=== PATIENT | female | born 1940 | race Caucasian/White ===

== ENCOUNTER 2017-03-31 18:07 | Inpatient (IN) | payer MEDICARE ==
--- NOTE | ~2017-03-31 | EKG ---
PATIENT: MANDY MEJIA UNIT #: [id number] Ventricular Rate: 119 BPM Atrial Rate: 119 BPM P-R Interval: 192 ms QRS Duration: 72 ms Q-T Interval: 296 ms QTC Calculation(Bezet): 416 ms P Seneca: 76 degrees Calculated R Seneca: 51 degrees Calculated T Seneca: 75 degrees Diagnosis Line: Sinus tachycardia Diagnosis Line: Nonspecific ST abnormality Diagnosis Line: Abnormal ECG Diagnosis Line: No previous ECGs available Diagnosis Line: Confirmed by ENEIDA ROJO MD ([id number]) on Diagnosis Line: 04/01/2017 2:01:34 PM INTERPRETING MD: DARREL DE LA PAZ
--- NOTE | ~2017-03-31 | HP ---
Unit #: [id number] #: [id number] Patient: MANDY MEJIA [id number] [address] [place], [place] [address] [id number] I MR#: [id number] NAME: MANDY MEJIA. ROOM: [facility] Age: 76 Sex: F Admission Date: 04/01/2017 : 1940 Attending Physician: Kim Cuevas M.D. Primary Care Physician: Bhavani Diehl M.D. HISTORY AND PHYSICAL CHIEF COMPLAINT Intractable left hip/thigh pain. HISTORY This pleasant 76-year-old female with rheumatoid arthritis, iron and B12 deficiency anemia, MRSA, is admitted for intractable left thigh/hip pain. The patient states that she was well until about three weeks ago when she developed some increasing pain and swelling around the dorsum of her right hand/wrist area, but this became more swollen and red recently. Two days ago developed fairly significant pain in her left thigh, left groin, left hip along with feeling hot and chilled. She currently is taking cefuroxime for a cough. Her grandson yesterday. She presented to this emergency department last evening complaining of fairly severe pain in the left thigh/left hip which is worse with movement. There are no fluctuant areas or redness that I can see. Labs are notable for leukocytosis, microcytic anemia, hyponatremia. Rectal examination revealed brown stool, trace heme positive. In the ER, she was given morphine, IV fluids, blood cultures were done, and a CT scan of the leg is pending. PAST MEDICAL HISTORY 1. Admission 12/2014 for MRSA abscess of the labia and buttocks requiring I and D. The patient was seen in consultation by infectious disease along with LSA. 2. Rheumatoid arthritis. 3. Glaucoma. 4. Breast cancer, status post partial right mastectomy. 5. Iron and B12 deficiency anemia. 6. COPD, on 2 L of oxygen. 7. MRSA abscess of the buttocks and labia requiring I and D. 8. Total abdominal hysterectomy. 9. Right wrist surgery. ALLERGIES None. HOME MEDICATIONS 1. Valium 5 mg q. h.s. 2. Phenergan 25 mg q.6 hours as needed. 3. Lortab 5/325 q.6 hours as needed. 4. Omeprazole 40 mg daily. 5. Cefuroxime 250 mg b.i.d. 6. Senna tablets, 2 mg daily. Unit #: [id number] #: [id number] Patient: MANDY MEJIA 7. Plaquenil 200 mg, two tablets daily. 8. Tylenol Arthritis. FAMILY HISTORY Congestive heart failure. SOCIAL HISTORY The patient lives with her , and grandson. Smokes one and a half packs per day of tobacco, does not drink alcohol except on a rare basis. REVIEW OF SYSTEMS Notable for redness, swelling of the right wrist, intense pain in the left thigh and groin, fevers, chills, COPD, rheumatoid arthritis, glaucoma, breast cancer, above mentioned surgeries, MRSA, anemia. All other systems were reviewed and are otherwise negative. PHYSICAL EXAMINATION GENERAL APPEARANCE: Pleasant 76-year-old female who looks to be uncomfortable. VITAL SIGNS: Temperature 98.1, pulse 88, respirations 18, blood pressure 150/70. O2 saturation is 98% on room air. HEENT: Eyes PERRLA. Extraocular muscles are intact. Pharynx is benign. NECK: Supple without adenopathy or thyromegaly. CHEST: Clear. CARDIAC: Normal S1 and S2 without S3, S4 or murmur. ABDOMEN: Bowel sounds are present. No hepatosplenomegaly, tenderness or masses. EXTREMITIES: Without edema. No splinter hemorrhages noted over the nail beds. No fluctuance or rash that I can see in the left thigh region. There is no labial abscess present. Movement of the hip causes fairly intense pain in the left thigh/left groin area. RECTAL EXAMINATION: No masses. Brown stool, trace heme positive. NEUROLOGIC: The patient is awake, alert, oriented. Cranial nerves are intact. She is weak throughout but has equal strength throughout. DIAGNOSTIC STUDIES LABORATORY: Admission labs - hematocrit is 24.1, MCV is 64, white blood count is 18.3, normal platelet count. One band noted. SMA-12 - glucose 114, sodium 125, chloride is 93. IMAGING: Chest x-ray - no acute disease. X-ray of the left hip shows DJD. ASSESSMENT 1. Right wrist redness and swelling which may represent rheumatoid arthritis flare versus some sort of infectious process. 2. Left hip and thigh pain of uncertain etiology, need to rule out septic joint, etc. 3. Microcytic anemia, patient is trace heme positive. 4. History of methicillin resistant Staph aureus. 5. Hyponatremia. 6. Chronic obstructive pulmonary disease, on home oxygen with ongoing tobacco use. 7. Status post partial right mastectomy for breast cancer. 8. History of iron and B12 deficiency. 9. Rheumatoid arthritis. Unit #: [id number] #: [id number] Patient: MANDY MEJIA PLANS 1. CT scan of the left leg, check venous Dopplers. 2. Empiric antibiotics in the form of Zosyn and vancomycin pending above. 3. Obtain urinalysis. 4. Proton pump inhibitor, transfuse and obtain anemia workup. 5. SCDs for DVT prophylaxis. 6. Obtain TSH and EKG. 7. Consultants depending on CT scan results. 8. Will give a little bit of prednisone in case the right wrist redness represents RA flare. 9. Blood cultures are pending. Dictated by Kim Cuevas M.D. AML/df TD: 04/01/2017 05:11 JOB #: [id number] HISTORY AND PHYSICAL Page 1 of 1 X Kim Cuevas MD X HISTORY AND PHYSICAL
--- NOTE | ~2017-03-31 | XA166 ---
[facility] A Service of [facility] & [facility] RADIOLOGY TEXT RESULTS PATIENT: MANDY MEJIA LOCATION: [facility] [address] : [birth year] UNIT #: [id number] AGE: [address]: Ana Cristina Silveira MD SEX: F ORDER DR: [id number] [facility] [address] [facility]. [place], [place] [address] [id number] I MR#: [id number] Acc #: [id number] NAME: MANDY MEJIA : 1940 SEX: F STUDY DATE/TIME: 04/03/2017 15:15 UNIT: [facility] ROOM: [facility] STUDY DESCRIPTION: XA PICC Line Placement WO Port Attending Physician: Ana Cristina Silveira M.D. Ordering Physician: Jj Linton M.D. Primary Care Physician: Bhavani Diehl M.D. MEDICAL IMAGING REPORT This report is preliminary unless electronic signature is present EXAM PICC line placement INDICATION IV access for antibiotics. PRE-PROCEDURE The procedure was explained to the patient and/or patient sales representatives including risks, benefits, potential complications and potential for alternative forms of treatment. Informed consent was obtained, and prior to initiating the procedure a formal timeout procedure was performed. PROCEDURE Using full standard sterile barrier technique, including caps, gowns, gloves, masks, as well as sterile skin preparation and standard sterile draping, the right arm was prepped and draped in the usual fashion, and real-time sterile ultrasound guidance was used to localize an arm vein and to confirm vessel patency. A hard copy ultrasound image was recorded. After local anesthesia with 1% Xylocaine, the right basilic vein was punctured using real-time sterile ultrasound guidance, and an 0.018 guidewire was advanced into the superior vena cava, using fluoroscopic guidance. A 4-Puerto Rican 35 cm single-lumen PICC was then measured and deployed with the tip positioned in the superior vena cava. The position of the line was documented with a radiographic image. The line was secured in place with an adhesive dressing and an antibiotic patch was applied. . The fluoroscopy time was 0.1 minute. Reference air kerma 1 mGy/cm. A single fluoroscopic spot image was obtained. IMPRESSION 1. Successful placement of a 4-Puerto [place]ican 35 c, single-lumen Power PICC via the right arm under ultrasound and fluoroscopic guidance. The tip of [facility] A Service of [facility] & [facility] RADIOLOGY TEXT RESULTS PATIENT: MANDY MEJIA LOCATION: [facility] 465- : [birth year] UNIT #: [id number] AGE: [address]: Ana Cristina Silveira MD SEX: F ORDER DR: the PICC is in good position in the superior vena cava. 2. A single fluoroscopic spot image was obtained. Dictated by... Norman Kohli M.D. THIS IS AN ELECTRONICALLY VERIFIED REPORT Norman Kohli M.D. at 04/04/2017 5:15 PM BHASKAR/abraham TD: 04/03/2017 23:10 JOB #: [id number] MEDICAL IMAGING REPORT Page 1 of 1 COPY
--- NOTE | ~2017-03-31 | CR150 ---
[facility] A Service of [facility] & [facility] RADIOLOGY TEXT RESULTS PATIENT: MANDY MEJIA LOCATION: [facility] 465-01 : 41 UNIT #: [id number] AGE: [address]: Ana Cristina Silveira MD SEX: F ORDER DR: [id number] [facility] [address] [facility]. [place], [place] [address] [id number] I MR#: [id number] Acc #: [id number] NAME: MANDY MEJIA : 1940 SEX: F STUDY DATE/TIME: 03/31/2017 22:19 UNIT: [facility] ROOM: [facility] STUDY DESCRIPTION: CR Hip Min 2 Views Lt Attending Physician: Ana Cristina Silveira M.D. Ordering Physician: Amy Diaz M.D. Primary Care Physician: Bhavani Diehl M.D. MEDICAL IMAGING REPORT This report is preliminary unless electronic signature is present EXAM Left hip series INDICATION Chronic left hip pain. PROCEDURE Frontal view of the pelvis and a lateral view of the left hip. COMPARISON None FINDINGS There is mild to moderate bilateral hip arthrosis. No acute findings. No fracture or dislocation. IMPRESSION 1. No acute findings. 2. Ljjs-ms-qizaebol bilateral hip arthrosis. Dictated by... Ernesto Angulo M.D. THIS IS AN ELECTRONICALLY VERIFIED REPORT Ernesto Angulo M.D. at 04/01/2017 10:14 PM SEGUNDO/sharita TD: 04/01/2017 08:42 JOB #: [id number] MEDICAL IMAGING REPORT Page 1 of 1 COPY
--- NOTE | ~2017-03-31 | OR ---
Unit #: [id number] #: [id number] Patient: MANDY MEJIA [id number] [facility]. [address] [place], [place] [address] [id number] I MR#: [id number] NAME: MANDY MEJIA ROOM: 465 Date of Procedure: 04/02/2017 Admission Date: 04/01/2017 Surgeon: Gordo Grant M.D. : 1940 Attending Physician: Ana Cristina Silveira M.D. Primary Care Physician: Bhavani Diehl M.D. OPERATIVE REPORT PRIMARY CARE PHYSICIAN Bhaavni Diehl M.D. PREOPERATIVE DIAGNOSES Severe iron-deficiency anemia with hemoglobin of 7.3, and transferrin saturation of 1%. The patient has actually presented with septic arthritis of left hip. PROCEDURE PERFORMED Upper gastrointestinal endoscopy. POSTOPERATIVE DIAGNOSES 1. The patient had a small hiatus hernia. 2. 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 3. Rest of the examination up to third part of duodenum was normal. RECOMMENDATIONS The patient is given intravenous iron infusions. She can be discharged from GI standpoint. At the present time, she is too frail to undergo colonoscopy, which should be scheduled as an outpatient after the patient's septic arthritis is resolved with antibiotic therapy. In the meantime, she is getting ferrous gluconate 250 mg IV q.24 hours for 3 days. SEDATION USED MAC. DESCRIPTION OF PROCEDURE Following detailed explanation of potential risks and complications of an upper endoscopy, namely perforation, bleeding, and complication related to sedation, the patient was brought to GI lab and laid in the left lateral decubitus position. Lubricated tip of the Olympus video upper endoscope was passed through the bite block into the proximal esophagus under direct vision. The entire esophageal mucosa was examined and the patient was noted to have distal esophageal early stricture along with a small hiatus hernia. The scope was then advanced into the gastric cavity and the latter was insufflated. Mucosa of the fundus, body, and antrum was examined and appeared unremarkable. Pylorus was intubated with visualization of the normal duodenal bulb and second and third part of the duodenum. Upon withdrawal and retroflexion, incisura, cardia, and greater curve was examined and no additional findings were noted. The scope was then withdrawn in the distal esophagus. The entire esophageal mucosa was examined all the way up to pharynx. No additional findings were noted. Unit #: [id number] #: [id number] Patient: MANDY MEJIA The patient tolerated the procedure without any postprocedure complications. Dictated by.Manjit Panda/rakel TD: 04/04/2017 11:31 JOB #: [id number] CC: Manjit Gerber M.D. OPERATIVE REPORT Page 1 of 1 X Gordo Grant MD X PROCEDURE OPERATIVE NOTE
--- NOTE | ~2017-03-31 | XA31 ---
[facility] A Service of [facility] RADIOLOGY TEXT RESULTS PATIENT: MANDY MEJIA LOCATION: [facility] 465-01 : 41 UNIT #: [id number] AGE: [address]: Ana Cristina Silveira MD SEX: F ORDER DR: [id number] [place] [id number] [facility]. [place], [place] [address] [id number] I MR#: [id number] Acc #: [id number] NAME: MANDY MEJIA : 1940 SEX: F STUDY DATE/TIME: 04/01/2017 16:23 UNIT: [facility] ROOM: [facility] STUDY DESCRIPTION: XA Arthrocentesis Small Joint Attending Physician: Ana Cristina Silveira M.D. Ordering Physician: Ana Cristina Silveira M.D. Primary Care Physician: Bhavani Diehl M.D. MEDICAL IMAGING REPORT This report is preliminary unless electronic signature is present PROCEDURE Attempted wrist aspiration. INDICATIONS Wrist pain, concern for septic arthritis. Risks, benefits and alternatives of the procedure were discussed with the patient, informed consent was obtained. In the procedure room, a time-out was performed confirming correct patient and procedure. All elements of maximum sterile-barrier technique utilized, according to guidelines appropriate for the procedure. TECHNIQUE/FINDINGS Examination was performed demonstrating some mild soft tissue swelling over the dorsum of the wrist. Ultrasound was performed demonstrating a questionable small amount of fluid adjacent to the dorsal tendon sheaths. The overlying skin was prepped and draped in the usual sterile fashion and 1% lidocaine was utilized to anesthetize the skin and underlying subcutaneous tissues. Next, under ultrasound guidance, a 25-gauge needle was advanced into the collection, but no fluid was able to be aspirated. Needle was removed and a sterile dressing was applied. No immediate complications. IMPRESSION Attempted wrist aspiration yielded no fluid. Dictated by... Norman Kohli M.D. THIS IS AN ELECTRONICALLY VERIFIED REPORT Norman Kohli M.D. at 04/02/2017 7:15 AM ARS/psc [facility] A Service of [facility] & [facility] RADIOLOGY TEXT RESULTS PATIENT: MANDY MEJIA LOCATION: [facility] 465-01 : 41 UNIT #: [id number] AGE: [address]: Ana Cristina Silveira MD SEX: F ORDER DR: TD: 04/02/2017 00:12 JOB #: [id number] MEDICAL IMAGING REPORT Page 1 of 1 COPY
--- NOTE | ~2017-03-31 | CR72 ---
[facility] A Service of [facility] & [facility] RADIOLOGY TEXT RESULTS PATIENT: MANDY MEJIA LOCATION: [facility] 465-01 : 41 UNIT #: [id number] AGE: [address]: Ana Cristina Silveira MD SEX: F ORDER DR: [id number] [facility] [address] [place], [place] [address] [id number] I MR#: [id number] Acc #: [id number] NAME: MANDY MEJIA : 1940 SEX: F STUDY DATE/TIME: 04/01/2017 1:02 UNIT: [facility] ROOM: [facility] STUDY DESCRIPTION: CR Chest Single View Portable Attending Physician: Ana Cristina Silveira M.D. Ordering Physician: Amy Diaz M.D. Primary Care Physician: Bhavani Diehl M.D. MEDICAL IMAGING REPORT This report is preliminary unless electronic signature is present EXAM Portable chest INDICATION Shortness of air for the past 2 days. PROCEDURE Frontal view chest COMPARISON 01/30/2015 FINDINGS The heart size is stable. No dense consolidation, pleural fluid or pneumothorax. IMPRESSION No active process. Dictated by... Ernesto Angulo M.D. THIS IS AN ELECTRONICALLY VERIFIED REPORT Ernesto Angulo M.D. at 04/01/2017 10:06 PM Efrem TD: 04/01/2017 09:30 JOB #: [id number] MEDICAL IMAGING REPORT Page 1 of 1 COPY
--- NOTE | ~2017-03-31 | CR282 ---
[facility] A Service of [facility] & [facility] RADIOLOGY TEXT RESULTS PATIENT: MANDY MEJIA LOCATION: [facility] 465-01 : 41 UNIT #: [id number] AGE: [address]: Ana Cristina Silveira MD SEX: F ORDER DR: [id number] [facility] [address] [facility]. [place], [place] [address] [id number] I MR#: [id number] Acc #: [id number] NAME: MANDY MEJIA : 1940 SEX: F STUDY DATE/TIME: 04/01/2017 0832 UNIT: [facility] ROOM: [facility] STUDY DESCRIPTION: CR Wrist Min 3 View Rt Attending Physician: Ana Cristina Silveira M.D. Ordering Physician: Jj Linton M.D. Primary Care Physician: Bhavani Diehl M.D. MEDICAL IMAGING REPORT This report is preliminary unless electronic signature is present EXAM Right wrist 3 views 04/01/2017 0832 hours HISTORY 76-year-old woman complaining of right wrist pain since yesterday. No known injury. COMPARISON Right hand film 09/27/2014. FINDINGS AP, lateral and oblique views demonstrate mild osteopenia. There is mild joint space loss at the radiocarpal joint. There is mild spurring at the first carpometacarpal joint. There is no fracture, dislocation or erosive change. IMPRESSION Minimal joint space loss and spurring particularly at the at the radiocarpal joint and the first carpometacarpal joint. There is no fracture, dislocation or definite erosive change. Dictated by... Misty Valdivia M.D. THIS IS AN ELECTRONICALLY VERIFIED REPORT Misty Valdivia M.D. at 04/02/2017 9:25 AM Bernardo TD: 04/01/2017 15:13 JOB #: [id number] MEDICAL IMAGING REPORT Page 1 of 1 COPY
--- NOTE | ~2017-03-31 | CT90 ---
[facility] A Service [facility] RADIOLOGY TEXT RESULTS PATIENT: MANDY MEJIA LOCATION: [facility] : 41 UNIT #: [id number] AGE: [address]: Ana Cristina Silveira MD SEX: F ORDER DR: [id number] [facility] [address] [facility]. [place], [place] [address] [id number] I MR#: [id number] Acc #: [id number] NAME: MANDY MEJIA : 1940 SEX: F STUDY DATE/TIME: 04/01/2017 1:58 UNIT: [facility] ROOM: [facility] STUDY DESCRIPTION: CT Lower Ext Lt W Cont Attending Physician: Ana Cristina Silveira M.D. Ordering Physician: Amy Diaz M.D. Primary Care Physician: Bhavani Diehl M.D. MEDICAL IMAGING REPORT This report is preliminary unless electronic signature is present EXAM Left hip CT with contrast INDICATION Left hip and proximal thigh pain for the past 2 days. Concern for infection. PROCEDURE Contrast-enhanced CT of the left hip and proximal left thigh. This CT exam was performed with one or more of the following radiation dose reduction techniques: automatic exposure control, adjustment of mA and/or kV according to patient size, and iterative reconstruction. COMPARISON None FINDINGS No acute fracture or dislocation. There is no drainable fluid collection or appreciable inflammatory change. There is a small left hip joint effusion. There are uncomplicated diverticula in the sigmoid colon. IMPRESSION 1. No acute bone findings. 2. No drainable fluid collection. 3. Small left hip joint effusion. Dictated by... Ernesto Angulo M.D. THIS IS AN ELECTRONICALLY VERIFIED REPORT Ernesto Angulo M.D. at 04/01/2017 10:10 PM SEGUNDO/sharita [facility] A [facility] RADIOLOGY TEXT RESULTS PATIENT: MANDY MEJIA LOCATION: [facility] : 41 UNIT #: [id number] AGE: [address]: Ana Cristina Silveira MD SEX: F ORDER DR: TD: 04/01/2017 09:42 JOB #: [id number] MEDICAL IMAGING REPORT Page 1 of 1 COPY
--- NOTE | ~2017-03-31 | OR ---
Unit #: [id number] #: [id number] Patient: MANDY NELSON [id number] [facility]. [address] [place], [place] [address] [id number] I MR#: [id number] NAME: MANDY NELSON ROOM: 465 Date of Procedure: 04/02/2017 Admission Date: 04/01/2017 Surgeon: Jj Linton M.D. : 1940 Attending Physician: Ana Cristina Silveira M.D. Primary Care Physician: Bhavani Diehl M.D. OPERATIVE REPORT PREOPERATIVE DIAGNOSIS Septic left hip. POSTOPERATIVE DIAGNOSIS Septic left hip. PROCEDURE PERFORMED Left hip incision and drainage through an anterior approach. 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 ANESTHESIA General anesthesia. COMPLICATIONS None. INDICATIONS FOR SURGERY Ms. Nelson is a 76-year-old female with a history of worsening left hip pain with rheumatoid arthritis with inability to walk secondary to groin and left thigh pain. A CT scan was obtained, which showed a small fluid collection around the left hip, and Interventional Radiology aspirated the hip and purulent drainage was obtained. The fluid was clotted, so unable to get adequate cell count, though there did appear to be 100% neutrophils noted on the differential. Cultures were pending at the time of this dictation, but given the patient's immunocompromised state with on immunosuppressive drugs and rheumatoid arthritis and clinical presentation consistent with septic hip, recommendations were made for a left hip incision and drainage. Risks and benefits were discussed in detail including failure to eradicate infection, medical risks, anesthetic risks, DVT, PE, need for additional surgery, and . Questions were answered to her satisfaction. Informed consent was obtained and placed in the chart. DESCRIPTION OF PROCEDURE After the patient was identified in the preoperative holding area, the operative site was marked in front of the patient, brought to the operating room for surgery and placed supine on the [place] operating table. All bony prominences were well padded. She was secured to the operating table. The left lower extremity was prepped and draped in usual sterile fashion. Then, using an anterior approach, the left hip was utilized with Unit #: [id number] #: [id number] Patient: MANDY NELSON a #10-blade scalpel. Approximately 3-inch incision was made. The TFL fascia was split longitudinally in-line with the incision. TFL was mobilized laterally and sartorius medially. The anterior hip capsule was incised in a T-type fashion. The purulent drainage was noted. Cultures were obtained. Then, the hip was irrigated with 3 L of Betadine laced normal saline. Drain was placed into the capsule, existing out inferolaterally. The TFL fascia was closed with 0 Vicryl in a running fashion, 2-0 Vicryl to close the dermis, and deandre to close the skin. Sterile dressings were applied. She was awakened from anesthesia and returned to recovery room in stable condition. No intraoperative complications. Dictated by... Manjit Lazaro/rakel TD: 04/02/2017 23:12 JOB #: [id number] OPERATIVE REPORT Page 1 of 1 X Jj Linton MD X PROCEDURE OPERATIVE NOTE
--- NOTE | ~2017-03-31 | CO ---
Unit #: [id number] #: [id number] Patient: MANDY NELSON [id number] [place], [place] [address] [id number] I MR#: [id number] NAME: MANDY NELSON ROOM: 465 Age: 76 Sex: F Admission Date: 04/01/2017 : 1940 Attending Physician: Ana Cristina Silveira M.D. Primary Care Physician: Bhavani Diehl M.D. Consultation Date: 04/01/2017 CONSULTATION REPORT CHIEF COMPLAINT Right wrist and left hip pain. HISTORY OF PRESENT ILLNESS Ms. Nelson is a pleasant 76-year-old female, poor historian, who presents to [facility] for worsening right wrist and left hip and thigh pain. She has a significant past medical history of rheumatoid arthritis, anemia, MRSA infection with abscess, as well as, grandson passing away recently from apparently MRSA infection. History is obtained from the chart as well as her granddaughter. Patient apparently had a history of doing well until about three weeks ago when began having increasing pain on the dorsum of the right wrist and a couple day history of worsening left thigh and groin pain. She was unable to walk. She was currently antibiotics for her cough. She presented to [facility] Emergency Room for further workup and treatment. She had x-rays as well as a CT scan of the left hip performed. Orthopedics was consulted for rule out septic hip. PAST MEDICAL HISTORY 1. MRSA abscess in the labia and buttock region back in December 2014. 2. Rheumatoid arthritis. 3. Glaucoma. 4. Breast cancer, status post right side breast surgery. 5. Anemia. 6. COPD. 7. Hysterectomy. 8. Right wrist surgery. ALLERGIES None. HOME MEDICATIONS 1. Valium. 2. Phenergan. 3. Lortab. 4. Omeprazole. 5. Cefuroxime. 6. Senna tablets. 7. Plaquenil. 8. Tylenol Arthritis. FAMILY HISTORY Significant for congestive heart failure. Unit #: [id number] #: [id number] Patient: MANDY NELSON SOCIAL HISTORY Lives with her and grandson. Smokes one half pack of tobacco daily. Denies alcohol except for rare occasions. REVIEW OF SYSTEMS Positive for right wrist and left thigh and hip pain, chills, fevers, COPD, rheumatoid arthritis, glaucoma; though these are all stable. Twelve systems reviewed and otherwise negative. PHYSICAL EXAMINATION GENERAL: Demonstrates a pleasant 76-year-old female, who is sleeping on arrival. She is somewhat sleepy. Per granddaughter, she reports just received some pain medication a half hour ago or so. VITAL SIGNS: She is currently afebrile. Vital signs are stable. HEENT: Normocephalic and atraumatic. Extraocular movements intact. Trachea is midline. CHEST: Demonstrates no audible expiratory wheeze. HEART: Regular rate and rhythm. ABDOMEN: Soft, nontender, obese. Does not appear to be distended. EXTREMITIES: Extremity exam demonstrates right wrist dorsum does appear to be erythematous. Her skin does not appear to be overly tender. She has actually full range of motion of the wrist, though does have pain in ranges. She is able to make a full composite fist as well as extend digits fully. She does have some effusion in the wrist itself, appears to be in the radiocarpal joint area. She has full supination and full pronation which is painless. Palpable radial pulse distally and brisk capillary refill distally. Exam of left hip demonstrates skin is intact. There is no erythema, no signs of effusion or swelling of the hip joints. She has palpable femoral artery. Her hip joint is completely nontender. On exam, she is laying on a bed commode. Flexion of the hip to 90 degrees with some complaints of pain, internal rotate is 5 degrees, external rotate is 30 degrees, abduct is 30 degrees. She has a negative straight leg raise. (1) sensation is intact to light touch. NEUROLOGIC: Intact. Wiggles toes and ankles distally. DIAGNOSTIC STUDIES LABORATORY: Review of pertinent laboratories: CBC has elevated white count of 18.3, hemoglobin 7.5. She has a left shift with 88% neutrophils. Sed rate was 41, which is within normal limits. IMAGING: Review of x-rays of the left hip demonstrates some moderate arthritis with (2) present. A CT scan also obtained of the left hip demonstrates no abscess about the hip. Does have a small left hip effusion. No fractures are appreciated. IMPRESSION 1. Right wrist synovitis with effusion. 2. Left hip and thigh pain with no visible abscess, though with small right hip effusion with possible history of methicillin-resistant Staphylococcus aureus infection. PLAN Based on clinical exam, it does not appear that she has a septic hip, though she does have definitely increased risk of a septic hip given her history of methicillin-resistant Staphylococcus aureus as well as recent passing of her grandson with methicillin-resistant Staphylococcus aureus living in the same household. Will go ahead and obtain x-rays and CT scan Unit #: [id number] #: [id number] Patient: MANDY NELSON of the right hip to see if there is any drainable fluid abscess or collection and then will ask interventional radiology to aspirate her right wrist if indicated as well as left hip joint. Will go ahead and allow her to eat, have a regular diet currently. We will follow up after the CT scan and aspirations are performed. Dictated by... Manjit Lazaor/cheri TD: 04/01/2017 11:43 JOB #: [id number] CONSULTATION REPORT Page 1 of 1 X Jj Linton MD X CONSULTATION REPORT
--- NOTE | ~2017-03-31 | US84 ---
[id number] [facility]. [facility] [address] [place], [place] [address] [id number] I MR#: [id number] Acc #: [id number] NAME: MANDY MEJIA : 1940 SEX: F STUDY DATE/TIME: 04/01/2017 17:18 UNIT: [facility] ROOM: [facility] STUDY DESCRIPTION: US LE Veins Complete Lito Stdy Attending Physician: Ana Cristina Silveira M.D. Ordering Physician: Kim Cuevas M.D. Primary Care Physician: Bhavani Diehl M.D. MEDICAL IMAGING REPORT This report is preliminary unless electronic signature is present EXAM Bilateral lower extremity Doppler venous ultrasound DATE 04/01/2017 HISTORY Left hip pain for 3 days. COMPARISON None. TECHNIQUE Venous ultrasound examination of both lower extremities was performed using grayscale, spectral Doppler and color flow Doppler imaging. FINDINGS The examination is negative. There is no evidence of deep venous thrombus from the groin to the lower calf bilaterally. Visualized greater saphenous veins are also patent. IMPRESSION Negative examination. No evidence of lower extremity deep venous thrombosis. Dictated by... Lissy Fox M.D. THIS IS AN ELECTRONICALLY VERIFIED REPORT Lissy Fox M.D. at 04/02/2017 10:05 AM ISABEL/joy TD: 04/02/2017 03:07 JOB #: [id number] MEDICAL IMAGING REPORT Page 1 of 1 COPY
--- NOTE | ~2017-03-31 | XA30 ---
[facility] A Service of [facility] RADIOLOGY TEXT RESULTS PATIENT: MANDY MEJIA LOCATION: [facility] 465-01 : 41 UNIT #: [id number] AGE: [address]: Ana Cristina Silveira MD SEX: F ORDER DR: [id number] [place], [place] [address] [id number] I MR#: [id number] Acc #: [id number] NAME: MANDY MEJIA : 1940 SEX: F STUDY DATE/TIME: 04/01/2017 16:22 UNIT: [facility] ROOM: [facility] STUDY DESCRIPTION: XA Arthrocentesis Major Joint Attending Physician: Ana Cristina Silveira M.D. Ordering Physician: Jj Linton M.D. Primary Care Physician: Bhavani Diehl M.D. MEDICAL IMAGING REPORT This report is preliminary unless electronic signature is present PROCEDURE Left hip aspiration under fluoroscopic guidance. INDICATION Left hip pain and left hip joint effusion. History of MRSA and concern for septic arthritis. The fluoroscopy time is 0.1 minutes. One fluoroscopic image was taken. The risks, benefits, and alternatives of the procedure were discussed with the patient, informed consent was obtained. In the procedure room, a time-out was performed confirming correct patient and procedure. All elements of maximum sterile-barrier technique utilized according to guidelines appropriate for the procedure. TECHNIQUE/FINDINGS The skin overlying the left hip was prepped and draped in the usual sterile fashion. 1% lidocaine utilized to anesthetize the skin and underlying subcutaneous tissues. Next, under fluoroscopic guidance, a 22-gauge needle was advanced into the hip joint space. Approximately 2 mL of purulent fluid was removed and samples were sent to the lab for the requested studies and cultures. The needle was removed and a sterile dressing was applied. No immediate complications. IMPRESSION Technically successful fluoroscopically guided left hip joint aspiration yielding approximately 2 mL of purulent-appearing fluid. Dictated by... Norman Kohli M.D. THIS IS AN ELECTRONICALLY VERIFIED REPORT [facility] A Service of [facility] RADIOLOGY TEXT RESULTS PATIENT: MANDY MEJIA LOCATION: [place] [address]- : 41 UNIT #: [id number] AGE: [address]: Ana Cristina Silveira MD SEX: F ORDER DR: Norman Kohli M.D. at 04/02/2017 7:15 AM BHASKAR/kai TD: 04/02/2017 00:14 JOB #: [id number] MEDICAL IMAGING REPORT Page 1 of 1 COPY
--- NOTE | ~2017-03-31 | CT128 ---
[facility] A Service of [facility] & [facility] RADIOLOGY TEXT RESULTS PATIENT: MANDY MEJIA LOCATION: [facility] 465-01 : 41 UNIT #: [id number] AGE: [address]: Ana Cristina Silveira MD SEX: F ORDER DR: [id number] [facility] [address] [place], [place] [address] [id number] I MR#: [id number] Acc #: [id number] NAME: MANDY MEJIA : 1940 SEX: F STUDY DATE/TIME: 04/01/2017 15:33 UNIT: [facility] ROOM: [facility] STUDY DESCRIPTION: CT Upper Ext Rt W Cont Attending Physician: Ana Cristina Silveira M.D. Ordering Physician: Jj Linton M.D. Primary Care Physician: Bhavani Diehl M.D. MEDICAL IMAGING REPORT This report is preliminary unless electronic signature is present EXAM CT right upper extremity (forearm, wrist, and proximal hand with IV contrast and with coronal and sagittal reconstructions, 04/01/[address] right wrist with IV contrast. Rule out abscess/drainable fluid collection. Ortho progress note 04/01/2017 states right wrist synovitis, left hip and thigh pain. Differential: Rheumatoid, FLAIR, pseudogout, infection. History sheet states wrist pain and swelling for 1 day. Fish oil capsule placed at the area of interest. History of breast cancer. COMPARISON Arthrocentesis images 04/01/2017, right wrist radiographs 04/01/2017. TECHNIQUE This CT exam was performed with one or more of the following radiation dose reduction techniques: automatic exposure control, adjustment of mA and/or kV according to patient size, and iterative reconstruction. FINDINGS No joint effusion to suggest septic arthritis or fluid collection to suggest an abscess is identified. The elbow is not included. Included joints are radiocarpal, distal radioulnar, midcarpal, and MCP joints. There may be a small amount of fluid in the flexor tendon sheath of the fifth digit at the level of the fifth metacarpal head. There is no fracture, osseous lesion, calcification to suggest CPPD, or obvious muscle abnormality. No soft tissue gas is identified. No high-grade arthritic findings are noted. There is no obvious subcutaneous inflammation. IMPRESSION [facility] A Service of [facility] & [facility] RADIOLOGY TEXT RESULTS PATIENT: MANDY MEJIA LOCATION: [facility] 465-01 : 41 UNIT #: [id number] AGE: [address]: Ana Cristina Silveira MD SEX: F ORDER DR: 1. There is no evidence of septic arthritis or fluid collection to suggest an abscess in the included portion detailed above. 2. There may be a small amount of fluid in the fifth digit flexor tendon sheath at the level of the fifth metacarpal head. 3. No definite arthritic findings. No calcification to suggest CPPD. STAT * RESULT Dictated by... Brionna Nunn M.D. THIS IS AN ELECTRONICALLY VERIFIED REPORT Brionna Nunn M.D. at 04/02/2017 11:47 AM Yury TD: 04/02/2017 08:44 JOB #: [id number] MEDICAL IMAGING REPORT Page 1 of 1 COPY
--- NOTE | ~2017-03-31 | CO ---
Unit #: [id number] #: [id number] Patient: MANDY NELSON [id number] [address] [id number] I MR#: [id number] NAME: MANDY NELSON ROOM: [facility] Age: 76 Sex: F Admission Date: 04/01/2017 : 1940 Attending Physician: Ana Cristina Silveira M.D. Primary Care Physician: Bhavani Diehl M.D. Requesting Physician: Ana Cristina Silveira M.D. Consultation Date: 04/01/2017 CONSULTATION REPORT REASON FOR CONSULTATION Severe iron deficiency anemia. HISTORY OF PRESENT ILLNESS Ms. Nelson is a pleasant 76-year-old white female who has been admitted with pain in the left hip and was found to have effusion of the left hip. The patient is currently getting radiologically-guided drainage from septic arthritis of the left hip, her initial presentation being left hip pain along with fever and leukocytosis. Initially she had been found to have moderately severe iron deficiency anemia with a hemoglobin of 7.3, which revealed no (1) transferrin saturation being 1%. The patient denies any history of overt GI bleed in the form of hematemesis, melena or hematochezia. She was also found to be hyponatremic on admission. The patient did have a Hemoccult positive stool on rectal examination in the emergency room. PAST MEDICAL HISTORY 1. History of MRSA abscess of the buttocks in 12/2014. 2. Rheumatoid arthritis. 3. Glaucoma. 4. B12 deficiency. 5. Chronic obstructive pulmonary disease on long-term home oxygen. PAST SURGICAL HISTORY 1. Total abdominal hysterectomy. 2. Right wrist surgery. 3. Right mastectomy for breast cancer. 4. Incision and drainage of the gluteal abscess. SOCIAL HISTORY The patient lives with her and grandson. She smokes 1.5 packs of cigarettes. Does not drink alcohol. FAMILY HISTORY Congestive heart failure. ALLERGIES No known drug allergies. HOME MEDICATIONS 1. Valium. 2. Phenergan. 3. Lortab. 4. Omeprazole. Unit #: [id number] #: [id number] Patient: MANDY NELSON 5. Cefuroxime. 6. Senna tablets. 7. Plaquenil. 8. Tylenol. REVIEW OF SYSTEMS Detailed review of organ systems does not reveal any recent weight loss. There is a history of fever, but no chills or rigors. No history of headache, seizure, chest pain, syncope. No history of cough, expectoration, hemoptysis. No history of dysuria or hematuria or polyuria. No history of focal seizures. The patient does not mention any significant retrosternal heartburn, dysphagia or postprandial dyspepsia. The rest of the review or organ systems is unremarkable. PHYSICAL EXAMINATION GENERAL: She is awake, alert and oriented and appears comfortable. VITALS: Stable with a temperature of 98.1. Pulse is 61 per minute and regular. Regular rate and rhythm 18. Blood pressure is 138/114. HEENT: She has moderate pallor, no icterus, lymphadenopathy or peripheral edema. LUNGS: Good entry. HEART: Normal heart sounds. No murmurs to auscultation. ABDOMEN: Soft, nontender. Liver and spleen are not palpable. Bowel sounds normal. DIAGNOSTIC STUDIES LABORATORY: Hemoglobin 7.3, hyperchromic microcytic indices. Transferrin saturation is 1%. BUN and creatinine are normal. Albumin 3.3. CLINICAL IMPRESSION 1. Patient with septic arthritis in the left hip. 2. Moderate to severe iron deficiency anemia. Compatible indices of iron deficiency. 3. Concomitant medical problems are listed in the past medical history. MANAGEMENT PLAN The overwhelming issue here is septic arthritis, which is being treated by aspiration by radiology. The patient, therefore, is not a suitable candidate for colonoscopy. It would be very hard for her to go through the prep. She also tells me that she had coloscopy done at [facility] or at [facility] within the past couple of years. We will and obtain a copy of the latter. An upper endoscopy will be performed tomorrow morning to look for any potential source of blood loss in the upper GI tract. The pros and cons of an upper endoscopy and the potential risks and complications were discussed with the patient, including possibly a perforation, bleeding complication. She seemed reassured. Thank you for asking me to see this pleasant patient in consultation. Dictated by.Manjit Panda/rehana Unit #: [id number] #: [id number] Patient: MANDY NELSON TD: 04/05/2017 10:44 JOB #: [id number] CC: Manjit Chang M.D. CONSULTATION REPORT Page 1 of 1 X Gordo Grant MD CONSULTATION REPORT
--- NOTE | ~2017-03-31 | DS ---
Unit #: [id number] #: [id number] Patient: MANDY MEJIA [id number] [address] [id number] I MR#: [id number] NAME: MANDY MEJIA. ROOM: [facility] Age: 76 Sex: F Admission Date: 04/01/2017 : 1940 Discharge Date: 04/04/2017 Attending Physician: Ana Cristina Silveira M.D. Primary Care Physician: Bhavani Diehl M.D. DISCHARGE SUMMARY PRINCIPAL DIAGNOSES 1. Sepsis secondary to left hip septic arthritis with negative cultures. 2. Iron deficiency anemia: Discharge hemoglobin 8.6. 3. Chronic hypoxic respiratory failure, maintained on 2 L of oxygen per nasal cannula continuously. 4. Chronic obstructive pulmonary disease. 5. Rheumatoid arthritis, maintained on chronic immunosuppression. 6. Tobaccoism. 7. Elevated blood pressure. 8. Gastroesophageal reflux disease. 9. Early esophageal stricture. 10. Hyponatremia. CONSULTANTS 1. Dr. Linton - Orthopedics. 2. Dr. Bryant - Gastroenterology. PROCEDURES 1. EGD on April 02, 2017, with a small hiatal hernia and distal nonobstructive early esophageal stricture. 2. Left hip incision and drainage through anterior approach on April 02, 2017. 3. X-ray of left hip on March 31, 2017, with mild to moderate bilateral hip arthrosis. No evidence of fracture. 4. X-ray of right hip on April 01, 2017, with minimal joint space loss and spurring in the first carpometacarpal joint. 5. CT of the left lower extremity with contrast on April 01, 2017, with no acute findings. No drainable fluid collection. Small left hip effusion. 6. CT of the right upper extremity with contrast on April 01, 2017, with no evidence of septic arthritis or fluid collection. There is a small amount of fluid in the fifth digit flexor tendon at the level of the fifth metacarpal head. 7. Arthrocentesis of left hip on April 01, 2017, with removal of 2 mL of purulent fluid. Cultures were negative. 8. Bilateral lower extremity venous Doppler which was negative for DVT. CLINICAL HISTORY/HOSPITAL COURSE Ms. Mejia is a nice 76-year-old female who presents to the emergency department with complaints of intractable left hip pain. Please refer to H and P for further details. The patient was really unable to move in the emergency department despite multiple negative imaging studies. However, she was found to have a significant leukocytosis in addition to significant anemia. She also had a mild hyponatremia. For Unit #: [id number] #: [id number] Patient: MANDY MEJIA these reasons, she was subsequently admitted. In regards to patient's left hip pain, orthopedics was consulted. She underwent imaging studies of the left hip and ultimately underwent an aspiration of the left hip revealing purulent fluid. Given these findings, in addition to her history of MRSA, she underwent anterior approach drainage of the hip. Again, cultures have remained negative. However, the plan is to continue patient on vancomycin for a total of six weeks and she will remain off of her DMARDs during this time. Will follow up with Dr. Linton as an outpatient. Upon presentation, patient also complains of right hip pain but, again, imaging studies were negative and there was no fluid able to be aspirated from the joints. I will continue symptomatic management. In regards to patient's significant hyponatremia, she was placed on IV fluids and this has resolved spontaneously. In regards to patient's anemia, GI was consulted given she appears to be significantly iron deficient. She did receive several doses of Venofer and hemoglobin on day of discharge has increased to 8.6. She underwent an EGD with findings as noted. The patient will follow up with GI as an outpatient for further evaluation for colonoscopy. Plan is to discharge patient home today with home health on IV antibiotics. DISCHARGE CONDITION Stable. DISCHARGE STATUS Discharge home with home health. DISCHARGE MEDICATIONS 1. Valium 5 mg at bedtime. 2. Senna 8.6 mg, two tablets by mouth daily. 3. Ferrous gluconate 324 mg p.o. daily with one refill given. 4. [place] 5/325, one to two tablets p.o. q.6 hours p.r.n. for pain, number given 40. 5. Omeprazole 40 mg daily. 6. Vancomycin 1 g IV q.24 hours for a total of six weeks. Stop date is May 14, 2017. 7. Please note - patient's Plaquenil is also being held during antibiotic dosing and will not be reinitiated until afterward. DISCHARGE INSTRUCTIONS The patient is instructed to follow a regular diet. She can increase her activity as tolerated. Her deandre of her left hip should be removed postop day 14 which would be April 16, 2017. She should keep the dressing on her left hip seven days unless it is saturated. She may shower. FOLLOWUP The patient is to call for an appointment for followup with Dr. Linton in two weeks, phone number [phone]. She will need vancomycin monitoring and/or dosing per home health pharmacy. She will follow up with her primary care provider, Bhavani Diehl, in two weeks as well. Time spent on discharge - 43 minutes. Unit #: [id number] #: [id number] Patient: MANDY MEJIA Dictated by... Dora Regalado M.D. BRIAN/isabelle TD: 04/06/2017 10:20 JOB #: [id number] DISCHARGE SUMMARY Page 1 of 1 X Dora Regalado MD X DISCHARGE SUMMARY
[~2017-03-31 18:07] MED LIST: ACETAZOLAMIDE250 MG PO; ADVAIR 100-501 EACH IH; ADVIL PM CAPLE1 EACH PO; ALBUTEROL17 GM INH; ASPERDRINK81 MG PO; ASPIRIN81 M2 PO; BROMDAY1.7 ML OS; BUSPAR15 M1 PO; CELEBREX PO; COMBIGAN EYE DRO5 ML OP; DAKIN'S MODIF1000 ML EXT; DARVOCET-N 1001 TA1 PO; DUREZOL5 ML OP; FOLIC ACID1 MG PO; FRESHKOTE15 ML OP; LEVAQUIN PO; METHOTREXATE2.5 MG PO; NORCO1 TAB 10/3 PO; OCEAN45 ML; OMNIPRED10 ML OP; PEPCID40 MG PO; PREDNISONE10 MG/DOSE PO; RESTASIS32 EA OP; RIFAMPIN300 M1 PO; SENNA S TABLET1 TAB PO; SIMBRINZA 1%-0.28 ML OP; SOOTHE XP EYE D15 ML OP; SYSTANE ULTRA 010 ML; VIBRAMYCIN100 M1 PO; ZIOPTAN 0.00151 EACH OP; ZOFRAN PO
[2017-03-31 22:28] LABS: BASOPHIL% 0.3 % (0-2.5); EOSINOPHIL# 0.1 X10e3 (0-0.7); EOSINOPHIL% 0.6 % (0.0-7.0); HEMATOCRIT 24.1 % (35.0-45.0); HEMOGLOBIN 7.5 gm/dL (12.0-16.0); LYMPHOCYTE# 1.6 X10e3 (1.0-3.5); LYMPHOCYTE% 8.6 % (17.0-45.0); MEAN CELL VOLUME 64.3 FL (83-96); MEAN CORPUSCULAR HEMOGLOBIN 20.1 PG (28-34); MEAN CORPUSCULAR HGB CONC 31.2 g/dL (30-36); MONOCYTE% 5.4 % (3.0-12.0); NEUTROPHIL# 15.6 X10e3 (1.5-7.1); NEUTROPHIL% 85.1 % (40-75); PLATELET COUNT 347 X10e3 (140-420); RED BLOOD COUNT 3.75 X10e (3.90-5.30); RED CELL DISTRIBUTION WIDTH 21.8 % (11.0-15.5); WHITE BLOOD COUNT 18.3 X10e3 (4.0-10.5)
[2017-03-31 22:33] LABS: DIFF IND YES
[2017-03-31 22:47] LABS: ALBUMIN SERUM 3.8 g/dL (3.5-5.0); BILIRUBIN, DIRECT 0.2 mg/dL (0.0-0.2); BILIRUBIN,TOTAL 0.2 mg/dL (0.2-2.0); BUN/CREATININE RATIO 13.75; CALCIUM SERUM 8.8 mg/dL (8.4-10.2); CREATININE SERUM 0.8 mg/dL (0.6-1.4); GLOM FILT RATE Estimated 72.2 mL/min (>60); POTASSIUM 3.9 mmol/L (3.5-5.1); PROTEIN TOTAL SERUM 7.2 g/dL (6.0-8.3)
[2017-03-31 23:22] LABS: PLATELET ESTIMATE NORMAL (NORMAL)
[2017-03-31 23:23] LABS: HYPOCHROMIA MOD; MICROCYTOSIS MOD; ROULEAUX SLIGHT
[2017-03-31] MEDS ORDERED: SENNA-TABS8.6 MG PO (23:32)
[2017-03-31] MEDS ORDERED: PLAQUENIL200 MG PO (23:33)
[2017-03-31] MEDS ORDERED: OMEPRAZOLE40 M1 PO (23:34)
[2017-03-31] MEDS ORDERED: CEFUROXIME250 M1 PO (23:35)
[2017-03-31] MEDS ORDERED: PHENERGAN25 M1 PO (23:36)
[2017-03-31] MEDS ORDERED: VALIUM10 MG PO (23:37)
[2017-03-31] MEDS ORDERED: HYDROCODON-ACE1 EAC7 (23:38)
[2017-04-01 07:28] LABS: BASOPHIL# 0.1 X10e3 (0-0.3); BASOPHIL% 0.6 % (0-2.5); EOSINOPHIL# 0.1 X10e3 (0-0.7); EOSINOPHIL% 0.4 % (0.0-7.0); HEMATOCRIT 23.8 % (35.0-45.0); HEMOGLOBIN 7.3 gm/dL (12.0-16.0); LYMPHOCYTE# 0.3 X10e3 (1.0-3.5); LYMPHOCYTE% 1.1 % (17.0-45.0); MEAN CELL VOLUME 65.6 FL (83-96); MEAN CORPUSCULAR HEMOGLOBIN 20.1 PG (28-34); MEAN CORPUSCULAR HGB CONC 30.6 g/dL (30-36); MEAN PLATELET VOLUME 6.9 FL (6.5-11.5); MONOCYTE# 0.2 X10e3 (0-1.0); MONOCYTE% 0.9 % (3.0-12.0); NEUTROPHIL# 24.5 X10e3 (1.5-7.1); PLATELET COUNT 322 X10e3 (140-420); RED BLOOD COUNT 3.62 X10e (3.90-5.30); RED CELL DISTRIBUTION WIDTH 22.2 % (11.0-15.5); WHITE BLOOD COUNT 25.3 X10e3 (4.0-10.5)
[2017-04-01 07:29] LABS: DIFF IND NO
[2017-04-01 07:54] LABS: ALBUMIN SERUM 3.3 g/dL (3.5-5.0); BILIRUBIN,TOTAL 0.7 mg/dL (0.2-2.0); BUN/CREATININE RATIO 11.11; CALCIUM SERUM 8.1 mg/dL (8.4-10.2); CREATININE SERUM 0.9 mg/dL (0.6-1.4); GLOM FILT RATE Estimated 62.6 mL/min (>60); POTASSIUM 3.5 mmol/L (3.5-5.1); PROTEIN TOTAL SERUM 6.2 g/dL (6.0-8.3)
[2017-04-01 08:11] LABS: %MB 3.6 % (0.0-4.0); MB 5.6 ng/ml
[2017-04-01 08:15] LABS: FOLATE (FOLIC ACID) 20.5 ng/mL (>5.8)
[2017-04-01 08:18] LABS: IRON SERUM <5 ug/dL (28-170); TOTAL IRON BINDING CAPACITY 397 ug/dL (269-535); TRANSFERRIN 284 mg/dL (192-382); TRANSFERRIN SATURATION 1 % (20-50)
[2017-04-01 09:36] LABS: URINE SOURCE CLEAN CATCH
[2017-04-01 09:48] LABS: URINE APPEARANCE CLEAR; URINE BILIRUBIN NEG (NEG); URINE BLOOD NEG (NEG); URINE COLOR YELLOW; URINE GLUCOSE NEG (NEG); URINE KETONE NEG (NEG); URINE LEUKOCYTE ESTERASE NEG (NEG); URINE NITRATE NEG (NEG); URINE PH 6.5 (5-8); URINE PROTEIN NEG (NEG); URINE SPECIFIC GRAVITY 1.042 (1.003-1.035); URINE UROBILINOGEN 0.2 MG/DL (NEG)
[2017-04-01 09:54] LABS: CULTURE INDICATED? NO
[2017-04-01 17:41] LABS: BODY FLUID APPEARANCE TURBID; BODY FLUID SOURCE SYNOVIAL
[2017-04-02 03:54] LABS: HEMATOCRIT 26.3 % (35.0-45.0); MEAN CORPUSCULAR HEMOGLOBIN 21.3 PG (28-34); MEAN CORPUSCULAR HGB CONC 30.6 g/dL (30-36); MEAN PLATELET VOLUME 7.8 FL (6.5-11.5); RED BLOOD COUNT 3.77 X10e (3.90-5.30); RED CELL DISTRIBUTION WIDTH 23.7 % (11.0-15.5); WHITE BLOOD COUNT 17.9 X10e3 (4.0-10.5)
[2017-04-02 03:55] LABS: MEAN CELL VOLUME 69.6 FL (83-96)
[2017-04-02 04:24] LABS: ALBUMIN SERUM 3.3 g/dL (3.5-5.0); BILIRUBIN,TOTAL 0.8 mg/dL (0.2-2.0); CALCIUM SERUM 8.1 mg/dL (8.4-10.2); CREATININE SERUM 0.8 mg/dL (0.6-1.4); GLOM FILT RATE Estimated 72.2 mL/min (>60); POTASSIUM 4.3 mmol/L (3.5-5.1); PROTEIN TOTAL SERUM 6.7 g/dL (6.0-8.3)
[2017-04-03 03:38] LABS: HEMATOCRIT 25.2 % (35.0-45.0); HEMOGLOBIN 7.7 gm/dL (12.0-16.0); MEAN CELL VOLUME 68.7 FL (83-96); MEAN CORPUSCULAR HEMOGLOBIN 20.9 PG (28-34); MEAN CORPUSCULAR HGB CONC 30.4 g/dL (30-36); RED BLOOD COUNT 3.66 X10e (3.90-5.30)
[2017-04-03 03:58] LABS: ALBUMIN SERUM 3.1 g/dL (3.5-5.0); BILIRUBIN,TOTAL 0.7 mg/dL (0.2-2.0); CREATININE SERUM 0.6 mg/dL (0.6-1.4); GLOM FILT RATE Estimated 89.2 mL/min (>60); PROTEIN TOTAL SERUM 6.1 g/dL (6.0-8.3)
[2017-04-04 03:24] LABS: BASOPHIL% 0.2 % (0-2.5); EOSINOPHIL% 0.1 % (0.0-7.0); HEMOGLOBIN 8.6 gm/dL (12.0-16.0); LYMPHOCYTE# 1.1 X10e3 (1.0-3.5); LYMPHOCYTE% 6.4 % (17.0-45.0); MEAN CELL VOLUME 70.2 FL (83-96); MEAN CORPUSCULAR HEMOGLOBIN 21.5 PG (28-34); MEAN CORPUSCULAR HGB CONC 30.7 g/dL (30-36); MEAN PLATELET VOLUME 8.6 FL (6.5-11.5); MONOCYTE% 5.6 % (3.0-12.0); NEUTROPHIL# 15.1 X10e3 (1.5-7.1); NEUTROPHIL% 87.7 % (40-75); PLATELET COUNT 328 X10e3 (140-420); RED BLOOD COUNT 3.99 X10e (3.90-5.30); RED CELL DISTRIBUTION WIDTH 24.1 % (11.0-15.5); WHITE BLOOD COUNT 17.3 X10e3 (4.0-10.5)
[2017-04-04 03:25] LABS: DIFF IND NO
[2017-04-04 03:43] LABS: BUN/CREATININE RATIO 8.57; CALCIUM SERUM 8.7 mg/dL (8.4-10.2); CREATININE SERUM 0.7 mg/dL (0.6-1.4); GLOM FILT RATE Estimated 84.8 mL/min (>60); POTASSIUM 3.8 mmol/L (3.5-5.1)
[2017-04-04] MEDS ORDERED: FERROUS GLUCON324 M1 PO ×2 (07:55→08:08)
[2017-04-04] MEDS ORDERED: VANCOMYCIN HCL1 GM IM (08:03)
== END 2017-04-04 10:25 | disposition home health service (06) | DRG 872 ==
LOC: CED 18:07 → C4C 04-01 01:50 → CEDOF 04-01 01:50 → CED 04-01 02:07 → CEDOF 04-01 02:07 → C4C 04-01 04:19 → CEDOF 04-01 04:19 → C4C 04-01 06:01
PROVIDERS: Emergency Medicine; Internal Medicine; Internal Medicine Gastroenterology; Specialist
PROC: 0S9B3ZX Drainage of Left Hip Joint, Percutaneous Approach, Diagnostic (ICD-10-PCS; 2017-04-01)
PROC: 0R9N3ZZ Drainage of Right Wrist Joint, Percutaneous Approach (ICD-10-PCS; 2017-04-01)
PROC: 0S9B0ZX Drainage of Left Hip Joint, Open Approach, Diagnostic (ICD-10-PCS; 2017-04-02)
PROC: 0DJ08ZZ Inspection of Upper Intestinal Tract, Via Natural or Artificial Opening Endoscopic (ICD-10-PCS; principal; 2017-04-02 15:30)
PROC: 02HV33Z Insertion of Infusion Device into Superior Vena Cava, Percutaneous Approach (ICD-10-PCS; 2017-04-03)
PROC: B548ZZA Ultrasonography of Superior Vena Cava, Guidance (ICD-10-PCS; 2017-04-03)
PROC: B518YZA Fluoroscopy of Superior Vena Cava using Other Contrast, Guidance (ICD-10-PCS; 2017-04-03)
DX: A41.9 Sepsis, unspecified organism (principal); J96.11 Chronic respiratory failure with hypoxia; J44.9 Chronic obstructive pulmonary disease, unspecified; M00.9 Pyogenic arthritis, unspecified; E87.1 Hypo-osmolality and hyponatremia; D50.9 Iron deficiency anemia, unspecified; F17.210 Nicotine dependence, cigarettes, uncomplicated; E53.8 Deficiency of other specified B group vitamins; M06.9 Rheumatoid arthritis, unspecified; Z98.49 Cataract extraction status, unspecified eye; R03.0 Elevated blood-pressure reading, without diagnosis of hypertension; K21.9 Gastro-esophageal reflux disease without esophagitis; K22.9 Disease of esophagus, unspecified; Z86.14 Personal history of Methicillin resistant Staphylococcus aureus infection; H40.9 Unspecified glaucoma; Z90.710 Acquired absence of both cervix and uterus; Z85.3 Personal history of malignant neoplasm of breast; K44.9 Diaphragmatic hernia without obstruction or gangrene; M65.88 Other synovitis and tenosynovitis, other site
CPT/HCPCS: 36415; 71010; 73110; 73201; 73502; 73701-LT; 76937; 76942; 77001; 77002; 80048; 80053; 80076; 80202; 81003; 82550; 82553; 82607; 82728; 82746; 83540; 83550; 83605; 84443; 84484; 84550; 85025; 85027; 85652; 86140; 86850; 86900; 86901; 86923; 87040; 87070; 87075; 87205; 89051; 93005; 93970; 94760; 96365; 96374; 97110; 97162; 97530; 99285; C1751; G8978-GP; G8979-GP; J1170; J1642; J2270; J2405; J2543; J2916; J3010; J3370; P9016; Q9967